=== PATIENT | female | born 2000 | race Caucasian/White ===

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

== ENCOUNTER 2022-02-03 13:30 | Outpatient (CLI) | payer MEDICAID ==
[~2022-02-03] VITALS: Ht 172.7 cm; Wt 110.1 kg
[~2022-02-03 13:30] MED LIST changes: +OMEP20CA18 PO
[2022-02-03 14:19] VITALS: BP 128/75
--- NOTE | 2022-02-06 08:12 | Physician Query-Final Dx ---
MAX,02/06/22 0812: Clinic Account Progress/Dx Physician Query: Please give diagnosis Please include # weeks gestation Date of Service Feb 03, 2022 at 13:30 FELIPE MORRISON MD 02/06/22 1157: Clinic Account Progress/Dx DIAGNOSIS: Diagnosis 31 weeks gestation patient with dependent/pretibial pitting edema MAX,MarFeb 06, 2022 08:12 FELIPE MORRISON MD Feb 06, 2022 11:57
== END 2022-02-03 14:31 | disposition home or self-care (01) ==
LOC: WSo 13:30 → LDRP 13:30 → WSo 14:31
PROVIDERS: ATTEND Obstetrics & Gynecology
DX: O12.03 Gestational edema, third trimester (principal); Z3A.31 31 weeks gestation of pregnancy
CPT/HCPCS: 99212

== ENCOUNTER → 2022-02-22 | Outpatient (CLI) | payer MEDICAID | LOC: LABNPT 11:09 | PROVIDERS: ATTEND Obstetrics & Gynecology | DX: O13.9 Gestational [pregnancy-induced] hypertension without significant proteinuria, unspecified trimester (principal); Z3A.00 Weeks of gestation of pregnancy not specified | CPT/HCPCS: 82570; 84156 ==

== ENCOUNTER 2022-03-09 22:42 | Outpatient (CLI) | payer MEDICAID ==
[~2022-03-09] VITALS: Ht 172.7 cm; Wt 117.8 kg
[2022-03-09] MEDS ORDERED: ASPI-999 PO (23:12)
[2022-03-09] MEDS ORDERED: PREN-142 PO (23:12)
[2022-03-09 23:29] VITALS: BP 131/67
--- NOTE | 2022-03-10 10:26 | Physician Query-Final Dx ---
03/10/22 1026: Clinic Account Progress/Dx Physician Query: Please give diagnosis Please include # weeks gestation Date of Service Mar 09, 2022 at 22:42 FELIPE MORRISON MD 03/10/22 1207: Clinic Account Progress/Dx DIAGNOSIS: Diagnosis False labor at 36 weeks gestation Mar 10, 2022 10:26 FELIPE MORRISON MD Mar 10, 2022 12:07
== END 2022-03-09 23:31 ==
LOC: LDRP 22:42 → WSo 22:42
PROVIDERS: ATTEND Obstetrics & Gynecology
DX: O42.913 Preterm premature rupture of membranes, unspecified as to length of time between rupture and onset of labor, third trimester (principal); Z3A.36 36 weeks gestation of pregnancy
CPT/HCPCS: 99213

== ENCOUNTER 2022-03-13 06:42 | Inpatient (IN) | payer MEDICAID ==
[2022-03-13] VITALS (42 sets, daily range): BP systolic 95–140; BP diastolic 45–87
[~2022-03-13] VITALS: Ht 171.5 cm; Wt 119.1 kg
[~2022-03-13 06:42] MED LIST changes: +ASPI-999 PO; +PREN-142 PO
[2022-03-13] MEDS ORDERED: D5 LR IV SOLUTION 1,000 ML IV SCH (08:00)
[2022-03-13] MEDS ORDERED: OXYTOCIN PRE-MIX DRIP 500 ML IV SCH ×2 (08:00→16:00)
--- NOTE | 2022-03-13 08:05 | History & Physical ---
History and Physical Date Seen by Provider: Mar 13, 2022 Time Seen by Provider: 08:03 This patient is a 21-year-old 2 para 1 LC 1 female with a history of demise after 20 weeks gestation. She currently is 37 weeks gestation her is complicated by PIH and by oligohydramnios. She presents this morning for induction of labor. She denies rupture membranes or bleeding. She does feel increasing pressure. Her GBS culture was negative. Allergies are none Medications are vitamins Medical social and surgical histories are per the antepartum record HEENT exam is normal Neck is supple with no lymphadenopathy no thyromegaly Abdomen is gravid soft nontender nondistended Extremities show no clubbing or cyanosis. There is no Homans' sign. Pelvic exam shows a cervix 4 cm dilated 70 to 80% effaced -1 to -2 station vertex presentation. Amniotomy was performed with release of clear fluid. Lab work is pending Assessment and plan 37+ weeks gestation in a patient with PIH and with oligohydramnios and with a history of second trimester loss/stillbirth. Patient is admitted now for labor induction. Amniotomy has been performed and we will initiate induction of labor with Pitocin as well. We anticipate a vaginal delivery 37 weeks with PIH and oligohydramnios Allergies and Home Medications Allergies Coded Allergies: No Known Drug Allergies (Unverified , 03/31/21) Patient Home Medication List Home Medication List Reviewed: Yes Aspirin (Aspirin) 81 Mg Tab.chew, 81 MG PO DAILY, (Reported) Entered as Reported by: MAAME ROMO on 03/09/222311 Omeprazole (Omeprazole) 20 Mg Capsule., 20 MG PO DAILY, (Reported) Entered as Reported by: RABIA ZEPEDA on 12/08/212122 Vit No.124/Iron/FA ( Vitamin Tablet) 27 Mg Iron-800 Mcg Tablet, 1 EACH PO DAILY, (Reported) Entered as Reported by: MAAME ROMO on 03/09/222311 FELIPE MORRISON MD Mar 13, 2022 08:05
[2022-03-13 08:12] LABS: BASOPHILS # (AUTO) 0.1 10^3/uL (0.0-0.1); BASOPHILS % (AUTO) 0 % (0-10); EOSINOPHILS # (AUTO) 0.1 10^3/uL (0.0-0.3); EOSINOPHILS % (AUTO) 1 % (0-10); HEMATOCRIT 29 % (35-52); HEMOGLOBIN 9.2 g/dL (11.5-16.0); LYMPHOCYTES # (AUTO) 3.6 10^3/uL (1.0-4.0); LYMPHOCYTES % (AUTO) 17 % (12-44); MEAN CORPUSCULAR HEMOGLOBIN 26 pg (25-34); MEAN CORPUSCULAR HGB CONC 32 g/dL (32-36); MEAN CORPUSCULAR VOLUME 82 fL (80-99); MEAN PLATELET VOLUME 10.1 fL (9.0-12.2); MONOCYTES # (AUTO) 1.2 10^3/uL (0.0-1.0); MONOCYTES % (AUTO) 6 % (0-12); NEUTROPHILS # (AUTO) 15.7 10^3/uL (1.8-7.8); NEUTROPHILS % (AUTO) 74 % (42-75); PLATELET COUNT 452 10^3/uL (130-400); WHITE BLOOD COUNT 21.2 10^3/uL (4.3-11.0)
[2022-03-13 10:01] LABS: BAND NEUTROPHILS 3 %; BASOPHILS % (MANUAL) 0 %; EOSINOPHILS % (MANUAL) 0 %; LYMPHOCYTES % (MANUAL) 18 %; MONOCYTES % (MANUAL) 1 %; NEUTROPHILS % (MANUAL) 78 %; RBC MORPH NORMAL
[2022-03-13] MEDS ORDERED: fentaNYL 2 mcg/ml BUPIVA 0.125 100 ML ONE (11:14)
[2022-03-13] MEDS ORDERED: fentaNYL INJ 100 MCG/2 ML AMP ONE (11:34)
[2022-03-13] MEDS ORDERED: LIDOCAINE PF 2% 5 ML (XYLOCAINE) VIAL ONE (11:34)
[2022-03-13] MEDS ORDERED: METOCLOPRAMIDE INJ 10 MG/2 ML (REGLAN) IV PRN (12:30)
[2022-03-13] MEDS ORDERED: NALOXONE 0.4 MG/ML 1 ML (NARCAN) VIAL IV PRN ×2 (12:30)
[2022-03-13] MEDS ORDERED: diphenhydrAMINE 50 MG/ML INJ (BENADRYL) IV PRN (12:30)
[2022-03-13] MEDS ORDERED: LACTATED RINGERS 1,000 ML IV SCH (12:30)
[2022-03-13] MEDS ORDERED: fentaNYL 2 mcg/ml BUPIVA 0.125 100 ML EPI SCH (12:30)
[2022-03-13] MEDS ORDERED: ONDANSETRON 4 MG/2 ML (SDV) Z0FRAN IV PRN (12:30)
[2022-03-13] MEDS ORDERED: LIDOCAINE 1% INJ 20 ML VIAL ONE (14:27)
[2022-03-13] MEDS ORDERED: BENZOCAINE/MENTHOL (DERMOPLAST) 56 ML CAN TP PRN (16:00)
[2022-03-13] MEDS ORDERED: ONDANSETRON 4 MG/2 ML (SDV) Z0FRAN IVP PRN (16:00)
[2022-03-13] MEDS ORDERED: oxyCODONE/APAP 5/325MG (PERCOCET 5) TABLET PO PRN (16:00)
[2022-03-13] MEDS ORDERED: LIDOCAINE 1% INJ 20 ML VIAL IJ PRN (16:30)
[2022-03-13] MEDS: KETOROLAC 30 MG/ML VIAL IV SCH (18:01)
[2022-03-13] MEDS: DOCUSATE SODIUM 100 MG (COLACE) CAP PO SCH (21:47)
[2022-03-14 00:47] VITALS: BP 101/49
[2022-03-14] MEDS: KETOROLAC 30 MG/ML VIAL IV SCH ×2 (00:54→06:36)
--- NOTE | 2022-03-14 02:43 | OPERATIVE REPORT ---
DATE OF SERVICE: 03/13/2022 DELIVERY NOTE The patient delivered by term spontaneous vaginal delivery of viable male with Apgars of 8 and 9 at 1 and 5 minutes respectively, weight of 6 pounds and 13 ounces. Cord blood pH that is pending and a time of 1456. The infant was bulb suctioned on delivery of the head and again upon completion of delivery. The was delivered over a second-degree perineal laceration. After delivery, the was dried, warmed stimulated and suctioned. When the pulseless of the umbilical cord doubly clamped, the father cut the cord and baby was passed to mom's abdomen. Cord bloods were obtained. The placenta delivered spontaneously Spencer very promptly. It was normal with a 3-vessel cord. The cervix, vagina, rectum and perineum were examined and found intact except for the second-degree perineal laceration, which was repaired with a single suture of 3-0 Vicryl Rapide in the usual manner to good hemostasis and good reapproximation. Sponge and needle counts were correct upon completion of the delivery and the repair. Blood loss was around 300 mL. The patient remained in the LDR for recovery. The baby remained with the mom. Job ID: [id number] DocumentID: [id number] Dictated Date: 03/13/2022 16:00:34 Director Of Clinical Education Date: 03/14/2022 02:41:00 Dictated By: FELIPE MORRISON MD
[2022-03-14 05:00] VITALS: BP 119/66
--- NOTE | 2022-03-14 08:00 | Progress Note ---
Standard Progress Note Progress Notes/Assess & Plan Date Seen by a Provider: Mar 14, 2022 Time Seen by a Provider: 07:59 Progress/Assessment & Plan This patient is without complaint. She is ambulating, voiding, tolerating oral intake well and has good pain control Vital Signs Date Time Temp Pulse Resp B/P (MAP) Pulse Ox O2 Delivery O2 Flow Rate FiO2 03/14/22 05:00 36.3 105 18 119/66 (83) 98 Room Air 03/14/22 00:47 36.1 92 18 101/49 (66) 98 Room Air 03/13/22 21:47 36.3 94 18 98/45 (62) 98 Room Air 03/13/22 18:34 91 18 104/58 (73) Room Air 03/13/22 18:19 100 18 113/60 (77) Room Air 03/13/22 18:04 96 18 111/59 (76) Room Air 03/13/22 17:49 86 18 106/56 (73) Room Air 03/13/22 17:34 87 18 105/55 (72) Room Air 03/13/22 17:19 96 18 108/57 (74) Room Air 03/13/22 17:04 89 18 110/51 (70) Room Air 03/13/22 16:50 102 18 110/56 (74) Room Air 03/13/22 16:45 37.0 102 18 109/76 (87) Room Air 03/13/22 15:49 97 18 132/61 (84) Room Air 03/13/22 15:34 36.6 106 18 133/73 (93) Room Air 03/13/22 15:20 36.6 90 18 121/66 (84) Room Air 03/13/22 15:05 36.8 03/13/22 14:34 36.1 03/13/22 14:20 78 18 100/56 (71) 100 Non Rebreather 15.00 03/13/22 14:11 Non Rebreather 15.00 03/13/22 13:50 88 18 117/61 (79) 100 Room Air 03/13/22 13:35 91 18 131/73 (92) 100 Room Air 03/13/22 13:20 82 18 130/87 (101) 100 Room Air 03/13/22 13:05 79 18 125/57 (79) 100 Room Air 03/13/22 12:50 35.7 03/13/22 12:47 81 18 95/54 (68) 100 Room Air 03/13/22 12:40 82 18 107/54 (71) 100 Room Air 03/13/22 12:32 35.9 102 18 120/57 (78) 100 Room Air 03/13/22 12:28 95 18 122/61 (81) 100 Room Air 03/13/22 12:20 87 18 122/59 (80) 100 Room Air 03/13/22 12:13 88 18 110/55 (73) 99 Room Air 03/13/22 12:10 90 18 106/55 (72) 99 Room Air 03/13/22 12:06 95 18 109/59 (76) 98 Room Air 03/13/22 12:04 96 18 107/59 (75) Room Air 03/13/22 12:01 86 18 109/58 (75) 99 Room Air 03/13/22 11:58 101 18 115/63 (80) Room Air 03/13/22 11:55 100 18 114/62 (79) 100 Room Air 03/13/22 11:51 93 18 123/72 (89) Room Air 03/13/22 11:49 88 18 125/71 (89) 100 Room Air 03/13/22 11:45 97 18 118/64 (82) 100 Room Air 03/13/22 11:31 89 18 108/56 (73) Room Air 03/13/22 11:00 88 18 118/56 (76) Room Air 03/13/22 10:46 91 18 126/61 (82) Room Air 03/13/22 10:41 37.3 03/13/22 10:31 100 18 121/61 (81) Room Air 03/13/22 10:17 36.5 92 18 125/66 (85) Room Air 03/13/22 10:02 93 18 124/66 (85) Room Air 03/13/22 09:45 94 18 127/68 (87) Room Air 03/13/22 09:30 86 18 140/62 (88) Room Air 03/13/22 09:11 36.9 I & O 03/14/22 07:00 Intake Total 2500 ml Balance 2500 ml Vital signs are stable. Patient is afebrile. Fundus is firm below the umbilicus and nontender Extremities show no clubbing or cyanosis. There is no Homans' sign. Assessment and plan day #1 status post term spontaneous vaginal delivery at 37 weeks gestation. Patient is doing well have routine convalescent care FELIPE MORRISON MD Mar 14, 2022 08:00
[2022-03-14] MEDS ORDERED: IBUP-1780 PO (08:01)
[2022-03-14] MEDS ORDERED: DOCU100C37 PO (08:01)
[2022-03-14] MEDS ORDERED: OXYC1TAB87 PO (08:01)
--- NOTE | 2022-03-14 08:03 | Discharge Inst-Surgical ---
Discharge Inst-Surgical Depart Medication/Instructions New, Converted or Re-Newed RX: Transmitted to Pharmacy Consults/Follow Up Orders & Referrals Follow Up Appt: Call to make follow up appt. for patient in 4 weeks. Activity Per routine post vaginal delivery instructions. Diet as tolerated Patient may shower or tub bathe as desired. Activity Activity as Tolerated: No Diet Discharge Diet: No Restrictions FELIPE MORRISON MD Mar 14, 2022 08:03
[2022-03-14] MEDS: DOCUSATE SODIUM 100 MG (COLACE) CAP PO SCH ×2 (09:06→21:59)
[2022-03-14 09:10] VITALS: BP 125/67
[2022-03-14 12:28] VITALS: BP 105/64
[2022-03-14] MEDS: IBUPROFEN 800 MG (MOTRIN) TAB PO SCH ×2 (12:29→18:08)
--- NOTE | 2022-03-14 14:50 | Anesthesia-Regional Post-Op ---
Regional Patient Condition Mental Status: Alert, Oriented x3 Circulation: Same as Pre-Op Headache: Absent Sensation: Full Recovery Motor Block: Absent Post Op Complications Complications None Follow Up Care/Instructions Patient Instructions None needed. Anesthesia/Patient Condition Patient is doing well, no complaints, stable vital signs, no apparent adverse anesthesia problems. No complications reported per nursing. AIDAN PADILLA CRNA Mar 14, 2022 14:50
[2022-03-14] MEDS ORDERED: IBUPROFEN 800 MG (MOTRIN) TAB PO SCH (16:00)
[2022-03-14 18:08] VITALS: BP 117/62
[2022-03-15] MEDS ORDERED: CALCIUM CARBONATE 500 MG (TUMS) TAB.CHEW PO PRN
[2022-03-15] MEDS ORDERED: CALCIUM CARBONATE 500 MG (TUMS) TAB.CHEW ONE (00:20)
[2022-03-15 00:23] VITALS: BP 138/73
[2022-03-15] MEDS: IBUPROFEN 800 MG (MOTRIN) TAB PO SCH ×3 (00:23→10:57)
--- NOTE | 2022-03-15 05:13 | Progress Note ---
Standard Progress Note Progress Notes/Assess & Plan Date Seen by a Provider: Mar 15, 2022 Time Seen by a Provider: 05:13 Progress/Assessment & Plan This patient is without complaint. She is ambulating, voiding, tolerating oral intake well and has good pain control Vital Signs Date Time Temp Pulse Resp B/P (MAP) Pulse Ox O2 Delivery O2 Flow Rate FiO2 03/14/22 05:00 36.3 105 18 119/66 (83) 98 Room Air 03/14/22 00:47 36.1 92 18 101/49 (66) 98 Room Air 03/13/22 21:47 36.3 94 18 98/45 (62) 98 Room Air 03/13/22 18:34 91 18 104/58 (73) Room Air 03/13/22 18:19 100 18 113/60 (77) Room Air 03/13/22 18:04 96 18 111/59 (76) Room Air 03/13/22 17:49 86 18 106/56 (73) Room Air 03/13/22 17:34 87 18 105/55 (72) Room Air 03/13/22 17:19 96 18 108/57 (74) Room Air 03/13/22 17:04 89 18 110/51 (70) Room Air 03/13/22 16:50 102 18 110/56 (74) Room Air 03/13/22 16:45 37.0 102 18 109/76 (87) Room Air 03/13/22 15:49 97 18 132/61 (84) Room Air 03/13/22 15:34 36.6 106 18 133/73 (93) Room Air 03/13/22 15:20 36.6 90 18 121/66 (84) Room Air 03/13/22 15:05 36.8 03/13/22 14:34 36.1 03/13/22 14:20 78 18 100/56 (71) 100 Non Rebreather 15.00 03/13/22 14:11 Non Rebreather 15.00 03/13/22 13:50 88 18 117/61 (79) 100 Room Air 03/13/22 13:35 91 18 131/73 (92) 100 Room Air 03/13/22 13:20 82 18 130/87 (101) 100 Room Air 03/13/22 13:05 79 18 125/57 (79) 100 Room Air 03/13/22 12:50 35.7 03/13/22 12:47 81 18 95/54 (68) 100 Room Air 03/13/22 12:40 82 18 107/54 (71) 100 Room Air 03/13/22 12:32 35.9 102 18 120/57 (78) 100 Room Air 03/13/22 12:28 95 18 122/61 (81) 100 Room Air 03/13/22 12:20 87 18 122/59 (80) 100 Room Air 03/13/22 12:13 88 18 110/55 (73) 99 Room Air 03/13/22 12:10 90 18 106/55 (72) 99 Room Air 03/13/22 12:06 95 18 109/59 (76) 98 Room Air 03/13/22 12:04 96 18 107/59 (75) Room Air 03/13/22 12:01 86 18 109/58 (75) 99 Room Air 03/13/22 11:58 101 18 115/63 (80) Room Air 03/13/22 11:55 100 18 114/62 (79) 100 Room Air 03/13/22 11:51 93 18 123/72 (89) Room Air 03/13/22 11:49 88 18 125/71 (89) 100 Room Air 03/13/22 11:45 97 18 118/64 (82) 100 Room Air 03/13/22 11:31 89 18 108/56 (73) Room Air 03/13/22 11:00 88 18 118/56 (76) Room Air 03/13/22 10:46 91 18 126/61 (82) Room Air 03/13/22 10:41 37.3 03/13/22 10:31 100 18 121/61 (81) Room Air 03/13/22 10:17 36.5 92 18 125/66 (85) Room Air 03/13/22 10:02 93 18 124/66 (85) Room Air 03/13/22 09:45 94 18 127/68 (87) Room Air 03/13/22 09:30 86 18 140/62 (88) Room Air 03/13/22 09:11 36.9 I & O 03/14/22 07:00 Intake Total 2500 ml Balance 2500 ml Vital signs are stable. Patient is afebrile. Fundus is firm below the umbilicus and nontender Extremities show no clubbing or cyanosis. There is no Homans' sign. Assessment and plan day #1 status post term spontaneous vaginal delivery at 37 weeks gestation. Patient is doing well have routine convalescent care March 15, 2022 Patient without complaint. She is ambulating, voiding, tolerating oral intake well and has good pain control. Patient is requesting discharge home. Vital Signs Date Time Temp Pulse Resp B/P (MAP) Pulse Ox O2 Delivery O2 Flow Rate FiO2 03/15/22 00:23 36.3 101 18 138/73 (94) 98 Room Air 03/14/22 18:08 36.5 95 18 117/62 (80) 98 Room Air 03/14/22 12:28 36.3 91 18 105/64 (78) 99 Room Air 03/14/22 09:10 36.4 95 18 125/67 (86) 99 Room Air Vital signs are stable. Patient is afebrile. The abdomen is benign. The fundus is firm below the umbilicus and nontender. Extremities show no clubbing or cyanosis. Homans' sign. Assessment and plan Post day #2 status post term spontaneous vaginal livery at 37+ weeks gestation. Patient doing well will be discharged home with follow-up in clinic Final Diagnosis 37-week spontaneous vaginal delivery FELIPE MORRISON MD Mar 15, 2022 05:13
[2022-03-15 06:24] VITALS: BP 125/76
[2022-03-15 08:00] VITALS: BP 106/51
[2022-03-15] MEDS: DOCUSATE SODIUM 100 MG (COLACE) CAP PO SCH (10:57)
== END 2022-03-15 15:10 | disposition home or self-care (01) | DRG 806 ==
LOC: LDRP 06:42
PROVIDERS: ADMIT Obstetrics & Gynecology; ATTEND Obstetrics & Gynecology
PROC: 10E0XZZ Delivery of Products of Conception, External Approach (ICD-10-PCS; principal; 2022-03-13)
PROC: 0KQM0ZZ Repair Perineum Muscle, Open Approach (ICD-10-PCS; 2022-03-13)
PROC: 10907ZC Drainage of Amniotic Fluid, Therapeutic from Products of Conception, Via Natural or Artificial Opening (ICD-10-PCS; 2022-03-13)
PROC: 3E033VJ Introduction of Other Hormone into Peripheral Vein, Percutaneous Approach (ICD-10-PCS; 2022-03-13)
DX: O13.4 Gestational [pregnancy-induced] hypertension without significant proteinuria, complicating childbirth (principal); O41.03X0 Oligohydramnios, third trimester, not applicable or unspecified; Z37.0 Single live birth; O70.1 Second degree perineal laceration during delivery; Z3A.37 37 weeks gestation of pregnancy
CPT/HCPCS: 36415; 85007; 85027; 86850; 86900; 86901

== ENCOUNTER 2022-03-29 20:31 | Emergency (ER) | payer MEDICAID ==
[~2022-03-29] VITALS: Ht 170.1 cm; Wt 111.9 kg
[~2022-03-29 20:31] MED LIST changes: +DOCU100C37 PO; +IBUP-1780 PO; +OXYC1TAB87 PO
[2022-03-29 20:35] VITALS: BP 133/79
[2022-03-29] MEDS ORDERED: TETRACAINE 0.5% OPHTH SOLN 4 ML BTL (SINGLE DOSE ONLY) ONE (20:49)
[2022-03-29] MEDS ORDERED: FLUORESCEIN (FLUOR-I-STRIPS) 1 MG STRP ONE (20:56)
[2022-03-29] MEDS ORDERED: FLUORESCEIN (FLUOR-I-STRIPS) 1 MG STRP OP ONE (21:00)
[2022-03-29] MEDS ORDERED: ACETAMINOPHEN 500 MG TAB (TYLENOL) PO ONE (21:00)
[2022-03-29] MEDS ORDERED: TETRACAINE 0.5% OPHTH SOLN 4 ML BTL (SINGLE DOSE ONLY) OP ONE (21:00)
--- NOTE | 2022-03-29 21:07 | ED EENT ---
History of Present Illness General Chief Complaint: Eye Problems Stated Complaint: R EYE PAIN/FOREIGN BODY Nursing Triage Note: Patient states that her eye began hurting at approximately 17:30 this evening. Patient denies injury to the area. Patient does report that she cleaned her contacts case with Mandy dish liquid. When she took her contact out of the case, it didn't appear as it normally does. Patient put the contact in her eye and the pain began shortly after. Patient did take the contact out and the pain intensified. Source: patient Exam Limitations: no limitations History of Present Illness Date Seen by Provider: Mar 29, 2022 Time Seen by Provider: 20:30 Initial Comments Patient is a 21-year-old female who presents with right eye pain after inserting her contact lens 2 hours prior to ED arrival. Patient states she is Mandy dish soap to wash her contact lens and then placed the lens in her eye felt right eye pain. She removed the contact lens but has had difficulty opening the eye then since pain. She denies change in vision. She denies foreign body sensation. She does not recall scratching her eye. No other acute symptoms or complaints. Timing/Duration: gradual Severity: moderate Location: eye (R) Prearrival Treatment: other Modifying Factors: Improves With Other Associated Symptoms: other Allergies and Home Medications Allergies Coded Allergies: No Known Drug Allergies (Unverified , 03/31/21) Patient Home Medication List Home Medication List Reviewed: Yes Aspirin (Aspirin) 81 Mg Tab.chew, 81 MG PO DAILY, (Reported) Entered as Reported by: MAAME ROMO on 03/09/22 231 Docusate Sodium (Docusate Sodium) 100 Mg Capsule, 100 MG PO BID Prescribed by: FELIPE FRANCIS on 03/14/22 08 Ibuprofen (Ibuprofen) 800 Mg Tablet, 800 MG PO Q6H Prescribed by: FELIPE FRANCIS on 03/14/22 08 Omeprazole (Omeprazole) 20 Mg Capsule.dr, 20 MG PO DAILY, (Reported) Entered as Reported by: RABIA ZEPEDA on 12/08/212122 Oxycodone HCl/Acetaminophen (Percocet 5-325 mg Tablet) 1 Each Tablet, 1 TAB PO Q6H PRN for PAIN-MODERATE (5-7) Prescribed by: FELIPE FRANCIS on 03/14/22 08 Vit No.124/Iron/FA ( Vitamin Tablet) 27 Mg Iron-800 Mcg Tablet, 1 EACH PO DAILY, (Reported) Entered as Reported by: MAAME ROMO on 03/09/22 5464 Review of Systems Review of Systems Constitutional: see HPI Eyes: See HPI Nose: see HPI Past Czdpfqp-Mhpfdz-Rcyfwt Hx Patient Social History Tobacco Use?: No Substance use?: No Alcohol Use?: No Pt feels they are or have been: No Immunizations Up To Date First/Initial COVID19 Vaccinat: NONE Second COVID19 Vaccination Finesse: NONE Third COVID19 Vaccination Date: NONE Seasonal Allergies Seasonal Allergies: No Past Medical History Surgeries: No Respiratory: No Cardiac: No Neurological: No Genitourinary: No Gastrointestinal: No Musculoskeletal: No Endocrine: No HEENT: No Cancer: No Psychosocial: No Integumentary: No Blood Disorders: No Physical Exam Vital Signs Vital Signs - First Documented 03/29/22 20:35 Temp 36.8 Pulse 86 Resp 16 B/P (MAP) 133/79 (97) Pulse Ox 100 O2 Delivery Room Air Height, Weight, BMI Height: '" Weight: lbs. oz. kg; 38.00 BMI Method: General Appearance: WD/WN Eyes: right eye other (Right eye, no foreign body, mild conjunctivitis. No fluorescein uptake.); bilateral eye normal inspection, bilateral eye PERRL, bilateral eye EOMI Nose: normal inspection, active bleeding Progress/Results/Core Measures Results/Orders My Orders Orders - FOREST FORDE DO Tetracaine 0.5% Ophth Ghada Sdv (Tetracai (03/29/22 21:00) Tetracaine 0.5% Ophth Ghada Sdv (Tetracai (03/29/22 20:49) Fluorescein Strips (Ckhyy-Z-Yuvxah) (03/29/22 21:00) Fluorescein Strips (Fviqi-E-Dqzytm) (03/29/22 20:56) Acetaminophen Tablet (Tylenol Tablet) (03/29/22 21:00) Medications Given in ED Current Medications Medications Dose Ordered Sig/Ben Route Start Time Stop Time Status Last Admin Dose Admin Tetracaine HCl 1 OR 2 DROPS INTO AFFEC... ONCE ONCE OP 03/29/22 21:00 03/29/22 21:01 DC 03/29/22 20:52 1 ML Vital Signs/I&O 03/29/22 20:35 Temp 36.8 Pulse 86 Resp 16 B/P (MAP) 133/79 (97) Pulse Ox 100 O2 Delivery Room Air Blood Pressure Mean: 97 Departure Communication (Admissions) Patient with eye pain with recent contact lens use. No corneal abrasion on exam. Will place on antibiotic drops with instructions to avoid contact use for the next week follow-up with eye doctor as needed. Return precautions reviewed. Patient verbalizes understanding agreement discharge instructions prior to departure. Impression Primary Impression: Conjunctivitis Disposition: HOME, SELF-CARE Condition: Stable Departure-Patient Inst. Decision time for Depature: 21:08 Referrals: FELIPE MORRISON MD (PCP/Family) Primary Care Physician Patient Instructions: Conjunctivitis ([place]) (DC) Add. Discharge Instructions: You were evaluated in the emergency department for right eye pain and contact lens use. Please avoid contact lens use for the next week. Take Tylenol for pain and apply eyedrops as directed. Wash your hand frequently to avoid spreading infection. Follow-up with local eye doctor in 2 to 3 days for reevaluation if symptoms persist. All discharge instructions reviewed with patient and/or family. Voiced und erstanding. Scripts Ofloxacin (Ocuflox) 0.3 % Soln 2 DROPS OD Q4H, #1 EA Prov: FOREST FORDE DO 03/29/22 FOREST FORDE DO Mar 29, 2022 21:07
[2022-03-29] MEDS ORDERED: OFL.3OP5 OD (21:11)
== END 2022-03-29 21:15 | disposition home or self-care (01) ==
LOC: EDUNIT# 20:31 → ER FS 20:32
DX: H10.9 Unspecified conjunctivitis (principal); Z28.310 Unvaccinated for COVID-19
CPT/HCPCS: 99283

== ENCOUNTER 2022-09-20 18:55 | Emergency (ER) | payer MEDICAID ==
[~2022-09-20 18:55] MED LIST changes: +OFL.3OP5 OD
[2022-09-20] MEDS ORDERED: NS IV 1000 ML 1,000 ML IV STA (19:20)
--- NOTE | 2022-09-20 19:26 | ED General ---
General Stated Complaint: LOW IRON Source of Information: Patient Exam Limitations: No Limitations (ANDRIA KENT) History of Present Illness Date Seen by Provider: Sep 20, 2022 Time Seen by Provider: 19:22 Initial Comments Patient is a 22-year-old female who is last menstrual cycle July 20 presents ED for vomiting for the past 4 days. She reports 8 episodes of vomiting daily without hematemesis or bile. She reports history of hyperemesis with her other . She has had some mild lower abdominal cramping but no pain today. Denies any vaginal bleeding, pain with urination, decreased urination. She is concerned that her iron level is low. She denies of any active bleeding. She denies chest pain, shortness of breath, cough, headache, dizziness. Currently on prenatals. Follows Dr. Macario. Was seen today and ordered promethazine for her vomiting. She has not taken any medication at this time. (ANDRIA KENT) Allergies and Home Medications Allergies Coded Allergies: No Known Drug Allergies (Unverified , 03/31/21) Patient Home Medication List Home Medication List Reviewed: Yes (ANDRIA KENT) Aspirin (Aspirin) 81 Mg Tab.chew, 81 MG PO DAILY, (Reported) Entered as Reported by: MAAME ROMO on 03/09/222311 Cephalexin (Cephalexin) 500 Mg Tablet, 500 MG PO BID Prescribed by: JANY FIGUEROA on 09/20/222034 Docusate Sodium (Docusate Sodium) 100 Mg Capsule, 100 MG PO BID Prescribed by: FELIPE FRANCIS on 03/14/22 08 Ibuprofen (Ibuprofen) 800 Mg Tablet, 800 MG PO Q6H Prescribed by: FELIPE FRANCIS on 03/14/22 08 Ofloxacin (Ocuflox) 0.3 % Soln, 2 DROPS OD Q4H Prescribed by: FOREST FORDE on 03/29/222110 Omeprazole (Omeprazole) 20 Mg Capsule.dr, 20 MG PO DAILY, (Reported) Entered as Reported by: RABIA ZEPEDA on 12/08/212122 Oxycodone HCl/Acetaminophen (Percocet 5-325 mg Tablet) 1 Each Tablet, 1 TAB PO Q6H PRN for PAIN-MODERATE (5-7) Prescribed by: FELIPE FRANCIS on 03/14/22 0802 Vit No.124/Iron/FA ( Vitamin Tablet) 27 Mg Iron-800 Mcg Tablet, 1 EACH PO DAILY, (Reported) Entered as Reported by: MAAME ROMO on 03/09/22 2312 Review of Systems Review of Systems Constitutional: No chills, No diaphoresis EENTM: No hearing loss, No ear pain, No blurred vision Respiratory: No cough, No dyspnea on exertion, No orthopnea, No short of breath Gastrointestinal: No abdominal pain, No diarrhea; nausea, vomiting Genitourinary: No decreased output, No discharge, No dysuria, No frequency Musculoskeletal: No back pain, No joint pain, No joint swelling, No muscle pain Skin: No change in color, No change in hair/nails Psychiatric/Neurological: Denies Anxiety (ANDRIA KENT) All Other Systems Reviewed Negative Unless Noted: Yes (ANDRIA KENT) Past Xtjelir-Bexhym-Hhsczf Hx Immunizations Up To Date First/Initial COVID19 Vaccinat: NONE Second COVID19 Vaccination Finesse: NONE Third COVID19 Vaccination Date: NONE (ANDRIA KENT) Seasonal Allergies Seasonal Allergies: No (ANDRIA KENT) Past Medical History Surgeries: No Respiratory: No Cardiac: No Neurological: No Genitourinary: No Gastrointestinal: No Musculoskeletal: No Endocrine: No HEENT: No Cancer: No Psychosocial: No Integumentary: No Blood Disorders: No (ANDRIA KENT) Physical Exam Vital Signs Vital Signs - First Documented 09/20/22 19:13 Temp 37.2 Pulse 98 Resp 16 B/P (MAP) 139/86 (103) Pulse Ox 100 O2 Delivery Room Air (MARLON,SCOTTY K DO) Vital Signs Capillary Refill : (ANDRIA KENT) Height, Weight, BMI Height: '" Weight: lbs. oz. kg; 38.00 BMI Method: General Appearance: No Apparent Distress, WD/WN Eyes: Bilateral Eye Normal Inspection, Bilateral Eye PERRL, Bilateral Eye EOMI HEENT: PERRL/EOMI, TMs Normal, Normal ENT Inspection, Pharynx Normal Neck: Full Range of Motion, Normal Inspection, Non Tender Respiratory: Chest Non Tender, Lungs Clear, Normal Breath Sounds, No Accessory Muscle Use, No Respiratory Distress Cardiovascular: Regular Rate, Rhythm, No Edema, No Gallop, No JVD Gastrointestinal: Normal Bowel Sounds, No Organomegaly, No Pulsatile Mass, Non Tender Back: Normal Inspection, No CVA Tenderness, No Vertebral Tenderness Extremity: Normal Capillary Refill, Normal Inspection, Normal Range of Motion, Non Tender Neurologic/Psychiatric: Alert, Oriented x3, No Motor/Sensory Deficits, Normal Mood/Affect, therapist rrt II-XII Norm as Tested Skin: Normal Color, Warm/Dry (ANDRIA EKNT) Progress/Results/Core Measures Suspected Sepsis SIRS Temperature: Pulse: Respiratory Rate: Laboratory Tests 09/20/22 19:30: White Blood Count 10.1 Blood Pressure / Mean: Laboratory Tests 09/20/22 19:25: Creatinine 0.78, Total Bilirubin 0.5 09/20/22 19:30: Platelet Count 368 (ANDRIA KENT) Results/Orders Lab Results Laboratory Tests Test 09/20/22 19:25 09/20/22 19:30 09/20/22 19:47 Range/Units Sodium Level 136 135-145 MMOL/L Potassium Level 3.5 L 3.6-5.0 MMOL/L Chloride Level 106 98-107 MMOL/L Carbon Dioxide Level 21 21-32 MMOL/L Anion Gap 9 5-14 MMOL/L Blood Urea Nitrogen 5 L 7-18 MG/DL Creatinine 0.78 0.60-1.30 MG/DL Estimat Glomerular Filtration Rate 111 BUN/Creatinine Ratio 6 Glucose Level 98 70-105 MG/DL Calcium Level 9.0 8.5-10.1 MG/DL Corrected Calcium 8.8 8.5-10.1 MG/DL Total Bilirubin 0.5 0.1-1.0 MG/DL Aspartate Amino Transf (AST/SGOT) 20 5-34 U/L Alanine Aminotransferase (ALT/SGPT) 25 0-55 U/L Alkaline Phosphatase 83 40-136 U/L Total Protein 7.5 6.4-8.2 GM/DL Albumin 4.3 3.2-4.5 GM/DL Human Chorionic Gonadotropin, Quant 19464 H <5 MIU/ML White Blood Count 10.1 4.3-11.0 10^3/uL Red Blood Count 4.32 3.80-5.11 10^6/uL Hemoglobin 11.3 L 11.5-16.0 g/dL Hematocrit 35 35-52 % Mean Corpuscular Volume 82 80-99 fL Mean Corpuscular Hemoglobin 26 25-34 pg Mean Corpuscular Hemoglobin Concent 32 32-36 g/dL Red Cell Distribution Width 15.1 H 10.0-14.5 % Platelet Count 368 130-400 10^3/uL Mean Platelet Volume 9.5 9.0-12.2 fL Immature Granulocyte % (Auto) 0 % Neutrophils (%) (Auto) 69 42-75 % Lymphocytes (%) (Auto) 23 12-44 % Monocytes (%) (Auto) 7 0-12 % Eosinophils (%) (Auto) 0 0-10 % Basophils (%) (Auto) 0 0-10 % Neutrophils # (Auto) 6.9 1.8-7.8 10^3/uL Lymphocytes # (Auto) 2.4 1.0-4.0 10^3/uL Monocytes # (Auto) 0.7 0.0-1.0 10^3/uL Eosinophils # (Auto) 0.0 0.0-0.3 10^3/uL Basophils # (Auto) 0.0 0.0-0.1 10^3/uL Immature Granulocyte # (Auto) 0.0 0.0-0.1 10^3/uL Urine Color ORANGE Urine Clarity CLOUDY Urine pH 6.0 5-9 Urine Specific [place] >=1.030 1.016-1.022 Urine Protein 1+ H NEGATIVE Urine Glucose (UA) NEGATIVE NEGATIVE Urine Ketones 1+ H NEGATIVE Urine Nitrite NEGATIVE NEGATIVE Urine Bilirubin 1+ H NEGATIVE Urine Urobilinogen 1.0 < = 1.0 MG/DL Urine Leukocyte Esterase 2+ H NEGATIVE Urine RBC (Auto) NEGATIVE NEGATIVE Urine RBC 0-2 /HPF Urine WBC 25-50 H /HPF Urine Squamous Epithelial Cells 25-50 H /HPF Urine Crystals PRESENT H /LPF Urine Amorphous Sediment FEW FANG URATES H /LPF Urine Bacteria FEW H /HPF Urine Casts NONE /LPF Urine Mucus MODERATE H /LPF Urine Culture Indicated YES (SCOTTY MASON DO) Medications Given in ED Current Medications Medications Dose Ordered Sig/Ben Route Start Time Stop Time Status Last Admin Dose Admin Promethazine HCl 25 mg ONCE ONCE IVP 6/28/23 19:30 09/20/22 19:31 DC 09/20/22 19:31 25 MG (SCOTTY MASON DO) Vital Signs/I&O 09/20/22 09/20/22 09/20/22 19:13 19:13 21:04 Temp 37.2 37.0 Pulse 98 89 Resp 16 16 B/P (MAP) 139/86 (103) 129/85 Pulse Ox 100 100 O2 Delivery Room Air Room Air Room Air 09/21/22 00:00 Intake Total 1000 ml Balance 1000 ml (SCOTTY MASON DO) Vital Signs/I&O Capillary Refill : (ANDRIA KENT) Departure Communication (PCP) Reviewed previous ER visits, H&P, lab testing. Patient is 8 weeks . G3, P1. Currently following Dr. Macario. no vaginal bleeding or urinary symptoms. Vomiting over the past 4 days. History of hyperemesis gravidarum. Patient vital signs stable but slightly. She has no current abdominal pain or chest pain. . patient saw her DIALYSIS SOCIAL WORKER today was given promethazine. She has not taken a dose. CBC, CMP, liter fluid and urinalysis was ordered. Bedside ultrasound showed intrauterine heart tones 146 bpm. She did have a positive ultrasound for intrauterine previous outpatient. Last menstrual cycle July 20. Urinalysis positive for infection. No evidence of hematuria. We will treat with Keflex. No vaginal discharge or vaginal bleeding. Soft abdomen without any tenderness. CBC, CMP grossly unremarkable. She was given dose of promethazine. Tolerating p.o. fluids. She states she is feeling much better. No evidence of surgical abdomen. Recommend continue taking antinausea medication at home. Recommend hydration. If any worsening symptoms return back to ED for further evaluation. Follow-up with recheck urinalysis in 5 days. If not able to eat or drink to return back to ED. follow- up with your DIALYSIS SOCIAL WORKER in 1 to 2 days for reevaluation. (ANDRIA KENT) Impression Primary Impression: Urinary tract infection Additional Impression: Vomiting during Disposition: HOME, SELF-CARE Condition: Stable Departure-Patient Inst. Decision time for Depature: 20:35 (ANDRIA KENT) Referrals: OVI MACARIO MD (PCP/Family) Primary Care Physician Patient Instructions: Urinary Tract Infection, Adult (DC) Add. Discharge Instructions: Take antibiotics as prescribed. Recommend nausea medication for nausea. Return back to ED if symptoms worsen Scripts Cephalexin (Cephalexin) 500 Mg Tablet 500 MG PO BID for 7 Days, #14 TAB Prov: ANDRIA KENT 09/20/22 ATTENDING PHYSICIAN NOTE: I WAS PHYSICALLY PRESENT ER PHYSICIAN, BUT I WAS NOT INVOLVED IN ANY DECISION MAKING OR ANY CARE OF THIS PATIENT AND I AM NOT COLLABORATING PHYSICIAN. (SCOTTY MASON DO) ANDRIA KENT Sep 20, 2022 19:26 SCOTTY MASON DO Sep 21, 2022 06:19
[2022-09-20] MEDS ORDERED: PROMETHAZINE INJ 25 MG/ML (PHENERGAN) AMP IVP ONE (19:30)
[2022-09-20 19:32] LABS: BASOPHILS % (AUTO) 0 % (0-10); EOSINOPHILS % (AUTO) 0 % (0-10); HEMATOCRIT 35 % (35-52); HEMOGLOBIN 11.3 g/dL (11.5-16.0); LYMPHOCYTES # (AUTO) 2.4 10^3/uL (1.0-4.0); LYMPHOCYTES % (AUTO) 23 % (12-44); MEAN CORPUSCULAR HEMOGLOBIN 26 pg (25-34); MEAN CORPUSCULAR HGB CONC 32 g/dL (32-36); MEAN CORPUSCULAR VOLUME 82 fL (80-99); MEAN PLATELET VOLUME 9.5 fL (9.0-12.2); MONOCYTES # (AUTO) 0.7 10^3/uL (0.0-1.0); MONOCYTES % (AUTO) 7 % (0-12); NEUTROPHILS # (AUTO) 6.9 10^3/uL (1.8-7.8); NEUTROPHILS % (AUTO) 69 % (42-75); PLATELET COUNT 368 10^3/uL (130-400); WHITE BLOOD COUNT 10.1 10^3/uL (4.3-11.0)
[2022-09-20 19:55] LABS: ALBUMIN 4.3 GM/DL (3.2-4.5); POTASSIUM 3.5 MMOL/L (3.6-5.0)
[2022-09-20 19:58] LABS: TOTAL PROTEIN 7.5 GM/DL (6.4-8.2)
[2022-09-20 20:00] LABS: BILIRUBIN,TOTAL 0.5 MG/DL (0.1-1.0)
[2022-09-20 20:01] LABS: CREATININE SERUM 0.78 MG/DL (0.60-1.30)
[2022-09-20 20:02] LABS: CLARITY,URINE CLOUDY; COLOR,URINE ORANGE; GLUCOSE, URINE (UA) NEGATIVE (NEGATIVE); KETONES,URINE 1+ (NEGATIVE); LEUKOCYTE ESTERASE ,URINE 2+ (NEGATIVE); NITRITE,URINE NEGATIVE (NEGATIVE); PROTEIN,URINE 1+ (NEGATIVE)
[2022-09-20 20:12] LABS: BILIRUBIN,URINE 1+ (NEGATIVE)
[2022-09-20 20:15] LABS: AMORPHOUS SEDIMENT,UR FEW AMOR URATES /LPF; BACTERIA,URINE FEW /HPF; RBC,URINE 0-2 /HPF; SQUAMOUS EPITHELIAL CELL,UR 25-50 /HPF; WBC,URINE 25-50 /HPF
[2022-09-20] MEDS ORDERED: CEPH500T PO (20:35)
[2022-09-20 21:04] VITALS: BP 129/85
== END 2022-09-20 21:04 | disposition home or self-care (01) ==
LOC: EDUNIT# 18:55 → ER 18:57
DX: O21.9 Vomiting of pregnancy, unspecified (principal); O86.20 Urinary tract infection following delivery, unspecified; N39.0 Urinary tract infection, site not specified; Z3A.08 8 weeks gestation of pregnancy; Z28.310 Unvaccinated for COVID-19
CPT/HCPCS: 36415; 80053; 81000; 84702; 85025; 87077; 87088; 87186

== ENCOUNTER 2023-02-17 00:20 | Outpatient (CLI) | payer MEDICAID ==
[~2023-02-17] VITALS: Ht 152.4 cm; Wt 121.7 kg
[2023-02-17 00:30] VITALS: BP 124/60
[2023-02-17 01:23] LABS: BILIRUBIN,URINE NEGATIVE (NEGATIVE); CLARITY,URINE CLEAR; COLOR,URINE YELLOW; GLUCOSE, URINE (UA) NEGATIVE (NEGATIVE); KETONES,URINE TRACE (NEGATIVE); NITRITE,URINE NEGATIVE (NEGATIVE); PH,URINE 5.5 (5-9); PROTEIN,URINE NEGATIVE (NEGATIVE)
[2023-02-17 01:24] LABS: BACTERIA,URINE TRACE /HPF; CALCIUM OXALATE CRYSTALS,UR FEW /LPF; LEUKOCYTE ESTERASE ,URINE NEGATIVE (NEGATIVE); WBC,URINE 0-2 /HPF
[2023-02-17] MEDS ORDERED: METR-145 PO (01:36)
[2023-02-17] MEDS ORDERED: DOXY1TAB3 PO (01:37)
--- NOTE | 2023-02-17 09:50 | OB Triage Report ---
Standard Progress Note Progress Notes/Assess & Plan Date Seen by a Provider: Feb 17, 2023 Time Seen by a Provider: 00:30 Expected Date of Delivery: Apr 26, 2023 Gestational Age in Weeks: 30 Gestational Age in Days: 2 LMP/ACOSTA Comment: As Above Progress/Assessment & Plan L&D Triage Note: S: Patient is a at 30 2/[address] Martinez came to this hospital because closer than her regular hospital. Patient presents with complaint of pelvic pressure, denies contractions, leakage of fluid or bleeding, or any other complaints. O: VSS/AF UA negative Patient with normal and reassuring heart rate tracing per RN and no evidence of contractions. Cervical exam per RN /high. Per RN patient had recent cervical exam where cervix described as 1.5 cm dilated, hence subjectively not much difference. A/P: 30 2/7 weeks No evidence of labor Patient released to home with routine OB precautions Follow up with regular OB provider, sooner prn. Final Diagnosis 30 weeks Third Trimester Not in Labor BIBIANA PALMA DO Feb 17, 2023 09:50
== END 2023-02-17 01:54 ==
LOC: WSo 00:20 → LDRP 00:21 → WSo 01:54
PROVIDERS: ATTEND Obstetrics & Gynecology
DX: O26.893 Other specified pregnancy related conditions, third trimester (principal); R10.2 Pelvic and perineal pain; Z3A.30 30 weeks gestation of pregnancy
CPT/HCPCS: 81000; 99213